=== PATIENT | male | born 1960 | race Caucasian/White ===

== ENCOUNTER 2016-12-08 23:48 | Emergency (ER) | payer OTHER ==
[~2016-12-08] VITALS: Ht 165.1 cm; Wt 80.6 kg
[2016-12-09 01:17] LABS: BASOPHIL COUNT 0.1 K/uL (0-0.1); EOSINOPHIL (%) 4.5 % (0-5); EOSINOPHIL COUNT 0.3 K/uL (0-0.3); HEMATOCRIT 33.2 % (38.0-50.0); IMMATURE GRANULOCYTE (%) 0.4 % (0.0-0.7); INSTRUMENT ABS NEUTROPHIL CT 3.6 K/uL; LYMPHOCYTE COUNT 2.2 K/uL (1.0-2.8); MCH 30.5 PG (29.0-34.0); MCHC 34.9 G/DL (30.0-36.0); MCV 87.4 FL (86-99); MEAN PLAT.VOLUME 9.8 uM^3 (9.0-12.4); MONOCYTE (%) 7.2 % (3-12); MONOCYTE COUNT 0.5 K/uL (0-0.8); NEUTROPHIL (%) 53.4 % (45-76); NEUTROPHIL COUNT 3.6 K/uL (1.8-6.4); PLATELET COUNT 191 K/uL (156-360); RBC DIS.WIDTH-CV 13.6 % (11.8-14.6); RBC DIS.WIDTH-SD 43.8 % (39-53); WHITE BLOOD COUNT 6.7 K/uL (4.1-10.2)
[2016-12-09 01:26] LABS: PROTHROMBIN TIME 22.4 SEC (10.2-12.9)
[2016-12-09 01:29] LABS: CHLORIDE 103 mEq/L (99-109); POTASSIUM 3.6 mEq/L (3.7-5.4); SODIUM 132 mEq/L (136-147)
[2016-12-09 01:30] LABS: GLUCOSE 137 mg/dL (70-99)
[2016-12-09 01:32] LABS: ANION GAP 11 MEQ/L (2-14)
[2016-12-09 01:34] LABS: GFR ESTIMATE (CALCULATED) > 59 mL/min/
[2016-12-09 01:35] LABS: UREA NITROGEN (BUN) 12 mg/dL (9-23)
[2016-12-09] MEDS ORDERED: CLINDAMYCIN HC300 MG PO (02:15)
[2016-12-09 02:35] VITALS: BP 157/99
== END 2016-12-09 02:36 | disposition home or self-care (01) ==
LOC: EXP 23:48 → EME 23:48 → EXP 12-09 02:36
PROVIDERS: Physician Assistant
DX: L03.116 Cellulitis of left lower limb (principal); I10 Essential (primary) hypertension; E11.9 Type 2 diabetes mellitus without complications; Z87.891 Personal history of nicotine dependence
CPT/HCPCS: 80048; 85025; 85610; 93971; 99281; 99284